=== PATIENT | female | born 1970 | race Caucasian/White ===

== ENCOUNTER 2023-08-29 04:56 | Day surgery (SDC) | payer OTHER ==
[2023-08-27 15:53] VITALS: BMI 24.0
[2023-08-29 06:52] VITALS: RESP 16
[2023-08-29] MEDS ORDERED: DEXAMETHASONE SOD PHOSPHATE 10 MG/1 ML VIAL ONE (07:19)
[2023-08-29] MEDS ORDERED: LIDOCAINE HCL/PF 1% SDV 5ML VIAL ONE (07:19)
[2023-08-29] MEDS: DEXAMETHASONE SOD PHOSPHATE 10 MG/1 ML VIAL IVPUSH ONE ×2 (08:17→08:21)
[2023-08-29] MEDS: LIDOCAINE 1% P/F 10 MG/ML VIAL INF ONE (08:17)
[2023-08-29] MEDS: IOHEXOL 180 MG/1 ML ML IJ ONE (08:18)
[2023-08-29 09:06] VITALS: BP 159/91; PULSE 76; TEMP 97.1
== END 2023-08-29 09:08 | disposition home or self-care (01) ==
LOC: JASU-SURG 04:56
PROVIDERS: ATTEND Pain Medicine Pain Medicine
PROC: 3E0R3BZ Introduction of Anesthetic Agent into Spinal Canal, Percutaneous Approach (ICD-10-PCS; 2023-08-29)
PROC: 3E0R33Z Introduction of Anti-inflammatory into Spinal Canal, Percutaneous Approach (ICD-10-PCS; principal; 2023-08-29 08:00)
DX: M54.16 Radiculopathy, lumbar region (principal)
CPT/HCPCS: 76000-TC-FY; 81025; J1100

== ENCOUNTER 2023-09-23 06:00 | Day surgery (SDC) | payer OTHER ==
[2023-09-22 09:47] VITALS: BMI 24.0
[2023-09-23 09:06] VITALS: RESP 18
[2023-09-23] MEDS: LIDOCAINE HCL 1% PRESERVATIVE FREE - 30ML VIAL IJ ONE ×2 (10:25)
[2023-09-23] MEDS: BUPIVACAINE HCL/PF 0.75% 10 ML VIAL NR ONE ×2 (10:30)
[2023-09-23 10:53] VITALS: TEMP 98.4
[2023-09-23 11:33] VITALS: BP 140/80; PULSE 80
[2023-09-23] MEDS ORDERED: ACETAMINOPHEN 500 MG TABLET (FP) PO PRN (13:57)
== END 2023-09-23 11:00 | disposition home or self-care (01) ==
LOC: JASU-SURG 06:00
PROVIDERS: ATTEND Pain Medicine Pain Medicine
PROC: 3E0T33Z Introduction of Anti-inflammatory into Peripheral Nerves and Plexi, Percutaneous Approach (ICD-10-PCS; 2023-09-23)
PROC: 3E0T3BZ Introduction of Anesthetic Agent into Peripheral Nerves and Plexi, Percutaneous Approach (ICD-10-PCS; principal; 2023-09-23 11:45)
DX: M47.816 Spondylosis without myelopathy or radiculopathy, lumbar region (principal)
CPT/HCPCS: 76000-TC-FY; 81025

== ENCOUNTER 2023-10-07 05:10 | Day surgery (SDC) | payer OTHER ==
[2023-10-06 12:43] VITALS: BMI 24.0
[2023-10-07] MEDS ORDERED: LIDOCAINE HCL/PF 1% SDV 5ML VIAL ONE (07:22)
[2023-10-07] MEDS ORDERED: SODIUM CHLORIDE 0.9% P/F 10 ML VIAL IJ ONE (12:45)
[2023-10-07] MEDS: LIDOCAINE HCL 1% PRESERVATIVE FREE - 30ML VIAL IJ ONE ×2 (13:12)
[2023-10-07] MEDS: IOHEXOL 180 MG/1 ML ML IJ ONE ×2 (13:16)
[2023-10-07] MEDS: DEXAMETHASONE SOD PHOSPHATE 10 MG/1 ML VIAL IM ONE ×2 (13:17)
[2023-10-07 13:32] VITALS: RESP 18
[2023-10-07 14:48] VITALS: BP 147/71; PULSE 74; TEMP 98.7
== END 2023-10-07 13:40 | disposition home or self-care (01) ==
LOC: JASU-SURG 05:10
PROVIDERS: ATTEND Pain Medicine Pain Medicine
PROC: 3E0R3BZ Introduction of Anesthetic Agent into Spinal Canal, Percutaneous Approach (ICD-10-PCS; 2023-10-07)
PROC: 3E0R33Z Introduction of Anti-inflammatory into Spinal Canal, Percutaneous Approach (ICD-10-PCS; principal; 2023-10-07 12:30)
DX: M54.16 Radiculopathy, lumbar region (principal)
CPT/HCPCS: 76000-TC-FY; 81025; J1100

== ENCOUNTER 2023-11-04 04:30 | Day surgery (SDC) | payer OTHER ==
[2023-11-03 17:11] VITALS: BMI 24.0
[2023-11-04] MEDS ORDERED: DEXAMETHASONE SOD PHOSPHATE 10 MG/1 ML VIAL ONE (07:10)
[2023-11-04] MEDS ORDERED: LIDOCAINE HCL/PF 1% SDV 5ML VIAL ONE (07:10)
[2023-11-04 08:38] VITALS: RESP 18
[2023-11-04] MEDS: IOHEXOL 180 MG/1 ML ML IJ ONE ×2 (09:37)
[2023-11-04] MEDS: LIDOCAINE 1% P/F 10 MG/ML VIAL INF ONE ×2 (09:37)
[2023-11-04] MEDS: DEXAMETHASONE SOD PHOSPHATE 10 MG/1 ML VIAL IVPUSH ONE ×2 (09:37)
[2023-11-04 09:54] VITALS: BP 151/73; PULSE 90; TEMP 97.9
== END 2023-11-04 10:06 | disposition home or self-care (01) ==
LOC: JASU-SURG 04:30
PROVIDERS: ATTEND Pain Medicine Pain Medicine
PROC: 3E0R3BZ Introduction of Anesthetic Agent into Spinal Canal, Percutaneous Approach (ICD-10-PCS; 2023-11-04)
PROC: 3E0R33Z Introduction of Anti-inflammatory into Spinal Canal, Percutaneous Approach (ICD-10-PCS; principal; 2023-11-04 09:45)
DX: M54.16 Radiculopathy, lumbar region (principal)
CPT/HCPCS: 76000-TC-FY; J1100

== ENCOUNTER 2024-02-12 04:52 | Day surgery (SDC) | payer OTHER ==
[2024-02-10 16:54] VITALS: BMI 24.0
[2024-02-12] MEDS ORDERED: LIDOCAINE HCL/PF 1% SDV 5ML VIAL ONE (07:21)
[2024-02-12 08:20] VITALS: TEMP 98.4
[2024-02-12] MEDS: LIDOCAINE HCL 1% PRESERVATIVE FREE - 30ML VIAL IJ ONE (10:33)
[2024-02-12 11:02] VITALS: PULSE 84
[2024-02-12 11:21] VITALS: BP 130/80; RESP 18
== END 2024-02-12 11:21 | disposition home or self-care (01) ==
LOC: JASU-SURG 04:52
PROVIDERS: ATTEND Pain Medicine Pain Medicine
PROC: 01HY3MZ Insertion of Neurostimulator Lead into Peripheral Nerve, Percutaneous Approach (ICD-10-PCS; principal; 2024-02-12 10:33)
DX: G89.4 Chronic pain syndrome (principal)
CPT/HCPCS: 64555; C1778; 81025